=== PATIENT | female | born 1980 | race Caucasian/White ===

== ENCOUNTER → 2021-12-18 | Outpatient (CLI) | payer OTHER ==
[2021-12-18 13:06] LABS: BASO % 1 % (0-3); EOS # 0.2 x10^3/uL (0.0-0.7); EOS % 5 % (0-3); HEMATOCRIT 38.3 % (36.0-47.0); HEMOGLOBIN 12.3 g/dL (12.0-15.5); LYMPH # 1.3 x10^3/uL (1.0-4.8); LYMPH % 35 % (24-48); MEAN CORPUSCULAR HEMOGLOBIN 30 pg (25-35); MEAN CORPUSCULAR HGB CONC 32 g/dL (31-37); MEAN CORPUSCULAR VOLUME 94 fL (79-100); MONO # 0.2 x10^3/uL (0.0-1.1); MONO % 6 % (0-9); NEUT % 53 % (31-73); PLATELET COUNT 153 x10^3/uL (140-400); RED BLOOD COUNT 4.07 x10^6/uL (3.50-5.40); RED CELL DISTRIBUTION WIDTH 13.4 % (11.5-14.5); WHITE BLOOD COUNT 3.8 x10^3/uL (4.0-11.0)
== END ==
LOC: ONCLAB 11:44
PROVIDERS: ATTEND Internal Medicine Hematology & Oncology
DX: I82.890 Acute embolism and thrombosis of other specified veins (principal); D64.9 Anemia, unspecified
CPT/HCPCS: 36415; 82728; 83540; 83550; 85025

== ENCOUNTER → 2021-12-28 | Outpatient (CLI) | payer OTHER ==
[~2021-12-28] MED LIST: IOHEXOL 300 MG/ML 100ML VIAL. IV ONE
--- NOTE | 2021-12-28 11:04 | RAD ---
Study: CT of the abdomen and pelvis with 12/28/2021 Comparison: None Clinical Indication: Pelvic DVT right ovarian vein Technique: Contiguous axial images are obtained from the apex of the diaphragm to the pelvic floor. I mages are obtained in the portal venous phase(s). Sagittal and coronal reformations are evaluated. Dose Reduction: One or more of the following individualized dose reduction techniques were utilized f or this examination: 1. Automated exposure control, 2. Adjustment of the mA and/or kV according to p atient size, 3. Use of iterative reconstruction technique FINDINGS: Evaluation of the hollow enteric structures is somewhat limited by Lack of oral contrast. Lung bases: Grossly unremarkable Lower Mediastinum: Grossly unremarkable Liver: Normal in size and contour with no focal parenchymal abnormalities. Biliary: No intra or extra hepatic biliary ductal dilatation. Gallbladder: Partially fluid distended and grossly unremarkable with no radiographically discernible stones. No pericholecystic fluid. Pancreas: Grossly unremarkable Spleen: Small splenule otherwise unremarkable. Adrenals: Grossly unremarkable Kidneys: Free of any hydronephrosis, nephrolithiasis or focal parenchymal abnormality. Gastroduodenum:Postsurgical changes of gastric bypass. Small bowel: Left upper quadrant anastomosis. Otherwise unremarkable Large bowel: Rare diverticula coli without evidence of diverticulitis. Surgical clip in the right per icolic gutter. Appendix: Normal Mesentery:No free or loculated fluid collections. No pathologic lymphadenopathy. Retroperitoneum:No suspicious masses or lymphadenopathy. Bladder:Nondistended. Reproductive pelvic organs:The uterus contains small amount of fluid. There are multiple small cystic structures in the left adnexa likely ovarian in nature. There is a 9 mm rim calcified nodule in the left adnexa without associated cyst or mass. 1.2 x 2.0 cm 6 thick structure in the left adnexa. Vascular:Arterial structures are normal. IVC appears patent. The right gonadal vein is dilated measur ing up to 9 mm. Patency is difficult to evaluate by CT as the density is similar to that of the IVC w hich is nonenhanced in this phase of contrast. Left gonadal vein is normal in size. Possible small pe lvic varicosities. No evidence of external compression. Bones:No suspicious osteoblastic or osteolytic bone lesions. IMPRESSION: 1. The right gonadal vein is mildly dilated measuring up to 9 mm. The vein is likely patent as it has a density similar to the adjacent inferior vena cava, but ultimately patency is suboptimally evaluat ed by CT. Contrast-enhanced pelvic MRI would be the optimal test. There are mild pelvic varicosities. No evidence of retroperitoneal mass or extrinsic compression on the right gonadal vein. If clinicall y indicated, ie patient has pelvic pain and other causes of have been excluded, IR consultation could be helpful for evaluation and treatment of gonadal vein insufficiency/pelvic congestion. 2. Cystic structures in the bilateral adnexa likely ovarian in nature. There is also a 9 mm calcified nodule in the left adnexa without associated mass. Pelvic ultrasound is recommended to evaluate the ovaries and the calcification to exclude a dermoid lesion. Electronically signed by: Darin Hale (12/28/2021 11:02 AM) [id number]
== END ==
LOC: CT 08:50
PROVIDERS: ATTEND Internal Medicine Hematology & Oncology
DX: I82.890 Acute embolism and thrombosis of other specified veins (principal); N83.8 Other noninflammatory disorders of ovary, fallopian tube and broad ligament; I86.2 Pelvic varices; K57.30 Diverticulosis of large intestine without perforation or abscess without bleeding; Z98.890 Other specified postprocedural states
CPT/HCPCS: 74177; Q9967

== ENCOUNTER → 2022-03-12 | Outpatient (CLI) | payer OTHER ==
[2022-03-12 10:10] LABS: BASO % 1 % (0-3); EOS # 0.2 x10^3/uL (0.0-0.7); EOS % 6 % (0-3); HEMATOCRIT 39.1 % (36.0-47.0); HEMOGLOBIN 12.8 g/dL (12.0-15.5); LYMPH % 27 % (24-48); MEAN CORPUSCULAR HEMOGLOBIN 31 pg (25-35); MEAN CORPUSCULAR HGB CONC 33 g/dL (31-37); MEAN CORPUSCULAR VOLUME 96 fL (79-100); MONO # 0.2 x10^3/uL (0.0-1.1); MONO % 6 % (0-9); NEUT # 2.3 x10^3/uL (1.8-7.7); NEUT % 62 % (31-73); PLATELET COUNT 158 x10^3/uL (140-400); RED BLOOD COUNT 4.09 x10^6/uL (3.50-5.40); RED CELL DISTRIBUTION WIDTH 13.6 % (11.5-14.5); WHITE BLOOD COUNT 3.7 x10^3/uL (4.0-11.0)
== END ==
LOC: ONCLAB 09:43
PROVIDERS: ATTEND Internal Medicine Hematology & Oncology
DX: I82.890 Acute embolism and thrombosis of other specified veins (principal); D64.9 Anemia, unspecified
CPT/HCPCS: 82728; 83540; 83550; 85025; 86146; 86147